=== PATIENT | female | born 1945 | race Caucasian/White ===

== ENCOUNTER 2021-01-28 10:00 | Outpatient (CLI) | payer OTHER ==
[~2021-01-28 10:00] MED LIST: DICLOFENAC SODI75 MG PO; FLECTOR1 EACH TOP; NABUMETONE750 MG PO
== END 2021-01-28 10:05 | disposition home or self-care (01) ==
LOC: RAD 10:00
PROVIDERS: ATTEND Physical Medicine & Rehabilitation
DX: M77.31 Calcaneal spur, right foot (principal); M25.571 Pain in right ankle and joints of right foot

== ENCOUNTER 2021-02-03 09:48 | Outpatient (CLI) | payer OTHER | END 2021-02-03 09:54 | disposition home or self-care (01) | LOC: SONOGRAMA 09:48 | PROVIDERS: ATTEND Physical Medicine & Rehabilitation | DX: M79.671 Pain in right foot (principal) ==